=== PATIENT | male | born 1990 | race Asian ===

== ENCOUNTER 2016-11-05 19:27 | Emergency (ER) | payer SELFPAY ==
[~2016-11-05] VITALS: Ht 170.2 cm; Wt 68.0 kg
[2016-11-05] MEDS ORDERED: Ketorolac 30mg Inj IM ONE (20:00)
[2016-11-05] MEDS ORDERED: DiphenhydrAMINE 50mg/ml Inj IM ONE (20:00)
[2016-11-05] MEDS ORDERED: Metoclopramide 10mg/2ml Inj IM ONE (20:00)
[2016-11-05] MEDS ORDERED: IBUPROFEN600 MG ORAL (21:04)
[2016-11-05 21:16] VITALS: BP 142/88
--- NOTE | 2016-11-07 12:04 | Emergency Room Report ---
History of Present Illness General Chief Complaint: Headache Source: Patient Present Illness HPI The pt is a 26 yo M who denies any medical history presenting for headache for the past 3 days. He describes this as a throbbing sensation 8/10 in intensity. It radiates to the neck but he denies neck stiffness. He admits to nausea but denies vomiting. He states that he recently returned from [place] which is when the symptoms began. He denies F, chills, rash, photophobia, dizziness, blurred vision, fatigue Allergies: Coded Allergies: No Known Allergies (Unverified , 11/05/16) Patient History Past Medical History: see triage record Pertinent Family History: none Reviewed Nursing Documentation: PMH: Agreed, PSxH: Agreed Nursing Documentation-PMH Past Medical History: No Stated History Review of Systems All Other Systems: negative except mentioned in HPI Physical Exam Vital Signs Date Time Temp Pulse Resp B/P Pulse Ox O2 Delivery O2 Flow Rate FiO2 11/05/16 19:42 98.2 71 16 142/88 99 Room Air Sp02 EP Interpretation: reviewed, normal General Appearance: no apparent distress, alert, GCS 15, non-toxic Head: normocephalic, atraumatic Eyes: bilateral eye PERRL, bilateral eye normal inspection ENT: hearing grossly normal, normal pharynx, no angioedema, normal voice Neck: normal inspection, full range of motion, supple, no bony tend, supple/ symm/no masses Respiratory: chest non-tender, lungs clear, normal breath sounds, speaking full sentences Musculoskeletal: back normal, gait/station normal, normal range of motion, non- tender Neurologic: alert, oriented x3, responsive, motor strength/tone normal, sensory intact, speech normal Psychiatric: judgement/insight normal, memory normal, mood/affect normal, no suicidal/homicidal ideation Skin: normal color, no rash, warm/dry, well hydrated Lymphatic: no adenopathy Medical Decision Making PA Attestation Dr. Stoner is my supervising physician. Patient management was discussed with my supervising physician Diagnostic Impression: Primary Impression: Headache Qualified Codes: R51 - Headache ER Course The pt is a 26 yo M who denies any medical history presenting for headache for the past 3 days DDx considered but not limited to: migraine, tension headache, dehydration, meningitis, among others PE: afebrle. NAD Head NC/AT. Non tender. PERRL. EOMI. Neck: soft and supple. Non tender. Full AROM. No nuchal rigidity. Negative Kernig and Brudzinski. Skin warm and dry. No rash. The pt is given IM Toradol, benadryl, and reglan and states VALLEJO has substantially improved. He is given indications to immediately seek medical care if he experiences symptoms such as continuing nausea, vomiting, fever, photophobia, neck stiffness , continued headache, rash, or any other symptoms Chest X-Ray Diagnostic Results Chest X-Ray Ordered: No Last Vital Signs Date Time Temp Pulse Resp B/P Pulse Ox O2 Delivery O2 Flow Rate FiO2 11/05/16 21:16 98.2 16 142/88 99 Room Air 11/05/16 19:42 71 Status: improved Disposition: HOME, SELF-CARE Condition: Improved Scripts Ibuprofen* (MOTRIN*) 600 Mg Tablet 600 MG ORAL Q8H Y for For Pain, #30 TAB 0 Refills Prov: DAVID OCHOA 11/05/16 Patient Instructions: General Headache Without Cause Additional Instructions: I discussed my findings with the patient. All questions and concerns have been answered. Treatment and medication compliance have been addressed. I advised the patient that they need to follow up with PMD in 3-5 days. Return to Emergency department if symptoms worsen, new symptoms arise, or if needed for any reason. Return to the emergency department immediately or call 911 if you notice increased headache, neck pain or stiffness, rash, fever, nausea or vomiting. Patient verbalized understanding of discharge instructions. DAVID OCHOA Nov 07, 2016 12:04
== END 2016-11-05 21:16 | disposition home or self-care (01) ==
LOC: EMR 20:11
DX: R51 Headache (principal); R11.0 Nausea; M54.2 Cervicalgia
CPT/HCPCS: 96372; 99283; J1200; J1885; J2765

== ENCOUNTER 2016-11-19 20:25 | Emergency (ER) | payer SELFPAY ==
[~2016-11-19] VITALS: Ht 170.2 cm; Wt 69.4 kg
[~2016-11-19 20:25] MED LIST: IBUPROFEN600 MG ORAL
[2016-11-19] MEDS ORDERED: NKM (20:39)
[2016-11-19 20:43] VITALS: BP 141/93
--- NOTE | 2016-11-19 21:12 | Emergency Room Report ---
History of Present Illness General Chief Complaint: Headache Source: Patient Present Illness HPI Patient presents with a left-sided headache. He feels it's sharp. In the past is been seen here and Motrin was given. This is been effective in controlling a headache in the past. In the past also he was drinking a lot of alcohol but has stopped that recently. He also has discomfort in his chest and upper abdomen. Feels like he needs to vomit but has not vomited. He is concerned about his heart. Allergies: Coded Allergies: No Known Allergies (Unverified , 11/05/16) Patient History Past Medical History: see triage record Social History: Denies: alcohol use - prior Social History Narrative from [facility] Reviewed Nursing Documentation: PMH: Agreed, PSxH: Agreed Nursing Documentation-PMH Past Medical History: No Stated History Physical Exam Vital Signs Date Time Temp Pulse Resp B/P Pulse Ox O2 Delivery O2 Flow Rate FiO2 11/19/16 20:33 98.1 69 16 141/93 98 Room Air General Appearance: well appearing, no apparent distress Head: normocephalic, atraumatic Eyes: bilateral eye PERRL, bilateral eye normal inspection ENT: hearing grossly normal, normal voice Neck: full range of motion, supple Respiratory: no respiratory distress, speaking full sentences Musculoskeletal: no calf tenderness Neurologic: alert, oriented x3, ibm bpm architect III-XII nml as tested, motor strength/tone normal, DTRs symmetric, sensory intact, cerebellar normal, normal gait, speech normal Psychiatric: mood/affect normal Skin: no rash Medical Decision Making Diagnostic Impression: Primary Impression: Headache Additional Impression: Epigastric discomfort EKG Diagnostic Results Rate: normal Rhythm: NSR ST Segments: no acute changes Rhythm Strip Diag. Results EP Interpretation: yes Rhythm: NSR, no PVC's, no ectopy Status: improved Disposition: HOME, SELF-CARE Condition: Improved David Stoner M.D. Nov 19, 2016 21:12
[2016-11-19] MEDS ORDERED: ZOFRAN ODT4 MG ORAL (21:40)
[2016-11-19] MEDS ORDERED: IBUPROFEN600 MG ORAL (21:40)
[2016-11-19] MEDS ORDERED: PEPCID20 MG ORAL (21:40)
[2016-11-19 22:11] VITALS: BP 141/93
--- NOTE | 2016-11-22 20:13 | Cardiology Report ---
APPROVED REPORT EKG Measurement Heart [id number] Normal sinus rhythm Normal ECG
== END 2016-11-19 22:11 | disposition home or self-care (01) ==
LOC: EMR 21:02
DX: R51 Headache (principal); R10.13 Epigastric pain
CPT/HCPCS: 93005; 99283